=== PATIENT | male | born 2000 | race Caucasian/White ===

== ENCOUNTER 2024-09-29 19:58 | Inpatient (IN) | payer MEDICAID ==
--- NOTE | 2024-09-29 20:36 | ED ---
Psych HPI - General Chief Complaint: Psychiatric Symptoms Stated Complaint: Mental Health Eval Time Seen by Provider: 09/29/24 20:36 Source: family, RN notes reviewed, old records reviewed Mode of arrival: ambulatory Limitations: no limitations - History of Present Illness Initial Comments: This is a 23-year-old male with recent psychiatric thoughts severe depression and suicidal thoughts, patient like to cut himself or drive his car into a tree MD Complaint: suicidal ideation, feels depressed -: days(s) Associated Psychiatric Symptoms: depression, suicidal ideation, racing thoughts History of same: Yes Quality: constant, getting worse Improves With: none Worsens With: none Associated Symptoms: denies other symptoms Treatments Prior to Arrival: placed on mental health hold If Self Harm: admits thoughts of self harm - Related Data Allergies Allergy/AdvReac Type Severity Reaction Status Date / Time No Known Allergies Allergy Verified 09/29/24 20:06 Review of Systems ROS Statement: Those systems with pertinent positive or pertinent negative responses have been documented in the HPI. ROS Other: All systems not noted in ROS Statement are negative. Past Medical History Past Medical History: Renal Disease History of Any Multi-Drug Resistant Organisms: None Reported Past Psychological History: Depression Smoking Status: Current every day smoker Past Alcohol Use History: Occasional Past Drug Use History: None Reported - Past Family History Father Family Medical History: No Reported History Mother Family Medical History: No Reported History General Exam Limitations: no limitations General appearance: alert, in no apparent distress Head exam: Present: atraumatic, normocephalic, normal inspection Eye exam: Present: normal appearance, PERRL, EOMI. Absent: scleral icterus, conjunctival injection, periorbital swelling ENT exam: Present: normal exam, mucous membranes moist Neck exam: Present: normal inspection. Absent: tenderness, meningismus, lymphad enopathy Respiratory exam: Present: normal lung sounds bilaterally. Absent: respiratory distress, wheezes, rales, rhonchi, stridor Cardiovascular Exam: Present: regular rate, normal rhythm, normal heart sounds. Absent: systolic murmur, diastolic murmur, rubs, gallop, clicks GI/Abdominal exam: Present: soft, normal bowel sounds. Absent: distended, tenderness, guarding, rebound, rigid Extremities exam: Present: normal inspection, full ROM, normal capillary refill. Absent: tenderness, pedal edema, joint swelling, calf tenderness Back exam: Present: normal inspection Neurological exam: Present: alert, oriented X3, CN II-XII intact Psychiatric exam: Present: normal affect, normal mood Skin exam: Present: warm, dry, intact, normal color. Absent: rash Course Vital Signs 09/29/24 20:04 Temperature 98.6 F Pulse Rate 77 Respiratory 18 Rate Blood Pressure 143/83 O2 Sat by Pulse 99 Oximetry - Reevaluation(s) Reevaluation #1: 09/29/24 21:22 Medical records reviewed Reevaluation #2: 09/29/24 21:22 Medically cleared for psychiatric evaluation Reevaluation #3: Differential Mental Health Depression, anxiety, bipolar, psychosis, schizophrenia, borderline personality, situational depression, adjustment disorder, behavioral disorder, brain tumor, malingering, substance abuse, encephalopathy, medication reaction, dementia, hypothyroidism, degenerative neurologic disorder, lupus.... This is not meant to be all-inclusive list Reevaluation #4: Was pt. sent in by a medical professional or institution (, PA, BOAT RIGGER, urgent care, hospital, or halfway...) When possible be specific @ -no Did you speak to anyone other than the patient for history (EMS, parent, family, police, friend...)? What history was obtained from this source @ -no Did you review nursing and triage notes (agree or disagree)? Why? @ -agree Are old charts reviewed (outside hosp., previous admission, EMS record, old EKG, old radiological studies, urgent care reports/EKG's, halfway records)? Report findings @ -yes Differential Diagnosis (chest pain, altered mental status, abdominal pain women, abdominal pain men, vaginal bleeding, weakness, fever, dyspnea, syncope, headache, dizziness, GI bleed, back pain, seizure, CVA, palpatations, mental health, musculoskeletal)? @ -prior EKG interpreted by me (3pts min.). @ -no X-rays interpreted by me (1pt min.). @ -no CT interpreted by me (1pt min.). @ -no U/S interpreted by me (1pt. min.). @ -no What testing was considered but not performed or refused? (CT, X-rays, U/S, labs)? Why? @ -none What meds were considered but not given or refused? Why? @ -none Did you discuss the management of the patient with other professionals (professionals i.e. , PA, BOAT RIGGER, lab, RT, psych nurse, social worker assistant, woods boss, teacher, special weapons and tactics officer, immigration case manager)? Give summary @ -no Was smoking cessation discussed for >3mins.? @ -no Was critical care preformed (if so, how long)? @ -no Were there social determinants of health that impacted care today? How? (Homelessness, low income, unemployed, alcoholism, drug addiction, transportation, low edu. Level, literacy, decrease access to med. care, half-way, rehab)? @ -none Was there de-escalation of care discussed even if they declined (Discuss DNR or withdrawal of care, Hospice)? DNR status @ -no What co-morbidities impacted this encounter? (DM, HTN, Smoking, COPD, CAD, Cancer, CVA, ARF, Chemo, Hep., AIDS, mental health diagnosis, sleep apnea, morbid obesity)? @ -none Was patient admitted / discharged? Hospital course, mention meds given and route, prescriptions, significant lab abnormalities, going to OR and other pe rtinent info. @ - 23 male will be admitted for psychiatric evaluation and treatment Transferred for inpatient psychiatric treatment Undiagnosed new problem with uncertain prognosis? @ -no Drug Therapy requiring intensive monitoring for toxicity (Heparin, Nitro, Insulin, Cardizem)? @ -no Were any procedures done? @ -no Diagnosis/symptom? @ -Acute psychosis Acute, or Chronic, or Acute on Chronic? @ -Acute Uncomplicated (without systemic symptoms) or Complicated (systemic symptoms)? @ -Complicated Side effects of treatment? @ -no Exacerbation, Progression, or Severe Exacerbation? @ -exacerbation Poses a threat to life or bodily function? How? (Chest pain, USA, AR, pneumonia, PE, COPD, DKA, ARF, appy, cholecystitis, CVA, Diverticulitis, Homicidal, Suicidal, threat to staff... and all critical care pts) @ -yes Medical Decision Making - Medical Decision Making 23 male will be admitted for psychiatric evaluation and treatment - Lab Data Result diagrams: 09/30/24 10:32 09/30/24 10:32 Lab Results 09/29/24 09/29/24 09/29/24 Range/Units 22:10 22:30 22:30 Urine Color Yellow Urine Appearance Clear (Clear) Urine pH 5.5 (5.0-8.0) Ur Specific [place] 1.028 (1.001-1.035) Urine Protein 1+ H (Negative) Urine Glucose (UA) Negative (Negative) Urine Ketones Negative (Negative) Urine Blood Negative (Negative) Urine Nitrite Negative (Negative) Urine Bilirubin Negative (Negative) Urine Urobilinogen <2.0 (<2.0) mg/dL Ur Leukocyte Esterase Negative (Negative) Urine RBC 8 H (0-5) /hpf Urine WBC 3 (0-5) /hpf Ur Squamous Epith Cells <1 (0-4) /hpf Calcium Oxalate Crystal Moderate H (None) /hpf Urine Mucus Occasional H (None) /hpf Urine Opiates Screen Negative (Negative) Urine Methadone Screen Negative (Negative) Ur Propoxyphene Screen Negative (Negative) Urine Barbiturates Negative (Negative) Ur Phencyclidine Scrn Negative (Negative) Ur Amphetamine Screen Negative (Negative) U Benzodiazepines Scrn Negative (Negative) Urine Cocaine Screen Negative (Negative) U Cannabinoids Screen Negative (Negative) Urine Alcohol Negative (Negative) U Creatinine Drug Scrn 299.0 (>=20.0) mg/dL Influenza Type A (PCR) Not Detected (Not Detectd) Influenza Type B (PCR) Not Detected (Not Detectd) RSV (PCR) Not Detected (Not Detectd) SARS-CoV-2 (PCR) Not Detected (Not Detectd) Disposition Clinical Impression: Major depressive disorder, Hallucinogen abuse, Adjustment reaction of adult life, Psychosis Disposition: TRANSFER TO PSYCH HOSP/UNIT Condition: Fair Is patient prescribed a controlled substance at d/c from ED?: No
[2024-09-29 22:56] LABS: Influenza A Not Detected (Not Detectd); Influenza B Not Detected (Not Detectd); RSV Not Detected (Not Detectd)
[2024-09-29] MEDS ORDERED: MAGNESIUM HYDROXIDE 2,400 MG/30 ML CUP PO PRN (23:17)
[2024-09-29] MEDS ORDERED: LORazepam 1 MG TAB PO PRN (23:17)
[2024-09-29] MEDS ORDERED: IBUPROFEN 600 MG TAB PO PRN (23:17)
[2024-09-29] MEDS ORDERED: haloperidoL 5 MG TAB PO PRN (23:17)
[2024-09-29] MEDS ORDERED: LORazepam 2 MG/ML INJ IM PRN (23:17)
[2024-09-29] MEDS ORDERED: ACETAMINOPHEN TAB 325 MG TAB PO PRN (23:17)
[2024-09-29] MEDS ORDERED: HALOPERIDOL LACTATE 5 MG/ML 1 ML VIAL IM PRN (23:17)
[2024-09-29] MEDS ORDERED: MAG HYDROX/AL HYDROX/SIMETH 355 ML BOTTLE PO PRN (23:17)
[2024-09-29] MEDS ORDERED: traZODone HCL 50 MG TAB PO PRN (23:17)
[2024-09-30 00:51] LABS: Appearance,Urine Clear (Clear); Bilirubin,Urine Negative (Negative); Blood,Urine Negative (Negative); Calcium Oxalate Crystals,Urine Moderate /hpf; Color,Urine Yellow; Glucose,Urine (UA) Negative (Negative); Ketones,Urine Negative (Negative); Leukocyte Esterase,Urine Negative (Negative); Mucus,Urine Occasional /hpf; Nitrite,Urine Negative (Negative); PH, Urine 5.5 (5.0-8.0); Protein,Urine 1+ (Negative); RBC,Urine 8 /hpf (0-5); Specific Gravity,Urine 1.028 (1.001-1.035); Squamous Epithelial Cell,Urine <1 /hpf (0-4); Urobilinogen,Urine <2.0 mg/dL (<2.0); WBC,Urine 3 /hpf (0-5)
--- NOTE | 2024-09-30 08:50 | P.HP ---
Psychiatric H&P - . H&P Date: 09/30/24 History & Physical: Allergies Allergy/AdvReac Type Severity Reaction Status Date / Time No Known Allergies Allergy Verified 09/29/24 20:06 Vital Signs Temp 97.9 F 09/30/24 00:09 Pulse 73 09/30/24 00:09 Resp 18 09/30/24 00:09 BP 127/83 09/30/24 00:09 Pulse Ox 98 09/30/24 00:09 FiO2 Intake & Output 09/29/24 09/30/24 09/30/24 18:59 06:59 18:59 Weight 68.719 kg Laboratory Last Values Urine Color Yellow 09/29/24 22:30 Urine Appearance Clear (Clear) 09/29/24 22: Urine pH 5.5 (5.0-8.0) 09/29/24 22:30 Ur Specific [place] 1.028 (1.001-1.035) 09/29/24 22:30 Urine Protein 1+ (Negative) H 09/29/24 22:30 Urine Glucose (UA) Negative (Negative) 09/29/24 22:30 Urine Ketones Negative (Negative) 09/29/24 22:30 Urine Blood Negative (Negative) 09/29/24 22:30 Urine Nitrite Negative (Negative) 09/29/24 22: Urine Bilirubin Negative (Negative) 09/29/24 22:30 Urine Urobilinogen <2.0 mg/dL (<2.0) 09/29/24 22:30 Ur Leukocyte Esterase Negative (Negative) 09/29/24 22:30 Urine RBC 8 /hpf (0-5) H 09/29/24 22:30 Urine WBC 3 /hpf (0-5) 09/29/24 22:30 Ur Squamous Epith Cells <1 /hpf (0-4) 09/29/24 22:30 Calcium Oxalate Crystal Moderate /hpf (None) H 09/29/24 22:30 Urine Mucus Occasional /hpf (None) H 09/29/24 22:30 Influenza Type A (PCR) Not Detected (Not Detectd) 09/29/24 22:10 Influenza Type B (PCR) Not Detected (Not Detectd) 09/29/24 22:10 RSV (PCR) Not Detected (Not Detectd) 09/29/24 22:10 SARS-CoV-2 (PCR) Not Detected (Not Detectd) 09/29/24 22:10
--- NOTE | 2024-09-30 09:06 | P.HP ---
Psychiatric H&P - . H&P Date: 09/30/24 History & Physical: 09/30/24 08:50 This is a 23-year-old male with recent psychiatric thoughts severe depression and suicidal thoughts, patient like to cut himself or drive his car into a tree. He struggled with severe depression as a teen and was prescribed Prozac but can't remember if it helped. About 4 months ago he began to feel more depressed. The main stress was having to set limits on coworkers. 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 He has been trying to treat his depression with mushrooms and recently abused them and watched a terrifying movie. He could not tel the difference between movie and reality and became much more suicidal. His occaisional suicidal thoughts became urges and he could not commit to safety. Social history: He had been given to 'wripl" movement as a teen and is still on probation for his involvement in a "terrorist" group. 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 He is the oldest of two children born to his parents. His whole family struggles with bipolar or alcohol or anger problems. Father is bipolar and mom was angry and fluctuated. He was born premature, his parents when he was 6, his younger brother has been diagnosed with schizoaffective disorder. He dropped out in the 11th grade to go to work so his option if he quits his job are limitedd. He lives and shares a house with his brother and 2 cats and a dog. MENTAL STATUS: He is alert with good eye contact and came redily to talk. He is oriented x4 and cooperative. He shows no psychotic or manic symptoms. Self care is good He could remember 3 of 3 objects for 5 min, he could name the last 7 presidents, he knew all of the [place] and where they were, he could spell WORLD backwards slowly and subtract 7 from 93 slowly. Abstracting the proverrb, "the grass is greener" he said, "Accept your own reality. He said that cats and snakes are both "feminine and move gracefully," This is an unusual and abstract idea. He says that the suicidal ideas are still there but are dying down. PLAN: for now he wants to think about taking medications and would rather look into counseling. ASSESSMENT: I think that he has some sort of Mood disorder inherited from his family but it is managable if he leaves the substances alone. Diagnosis: Major DEpression recurrent moderate nonpsychotic
[2024-09-30] MEDS: NICOTINE 14MG/24HR PATCH TRANSDERM SCH (09:45)
--- NOTE | 2024-09-30 10:35 | P.HP ---
Psychiatric H&P - . H&P Date: 09/30/24 History & Physical: 09/30/24 10:15 in the ER: This is a 23-year-old male with recent psychiatric thoughts severe depression and suicidal thoughts, patient like to cut himself or drive his car into a tree Complaint: suicidal ideation, feels depressed Her petition says that she wanted to not be on earth and tried to cut her wrist with a hammer after taking an OD of flexeril. SUBJECTIVE: "They got it all wrong." She says that she has no history of depression or suicidal acts. She rhea any problem with substance abuse. She says that she has been in reltionship with her boyfriend on and off for about 8 years. He recently allowed his 16 yo son to visit from [place]. The patient and his son have never gotten along as he does not accept her being in relationship with his dad. She pointed out to her boyfriend that she always did things for him and even takes care of his invalid mother but he never does anything for her and she just wanted to have him send her back to her family in [place]. They had had a couple drinks but she says that she did not have a buz on. Everyone was fighting and she took 3 flexeril for muscle relaxation and knew full well that that would not kill her. During the fight, in order to push the point of her misery she made comments that she laughingly admits were inadvised, about not wanting to be on earth. She then too a plastic sheath for a knife and pantomimed cutting her wrist. "There was never any hammer involved." They called the police and she wound up in the hospital. She denies now or in the past any suicidal or homicidal ideas. She denies and does not evidence any psychotic symptoms. She shows no racing thoughts or pressured speech and rhea any past manic episodes. She has a plan to go to stay with her sister in [place] and called her sister who agreed to take her. 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 SOCIAL HISTORY: She is the third of five children born to her parents who are alive and together. Her mother does have Altzeimers. She was for14 years and has 3 children. The oldest is 34 and has two children and is doing well. The next is 32 and is, "lazy" and does not care for her two children. The patient was taking care of them but due to her boyfriends son being out of control the children were removed. She has a 30 year old son. 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 No and no legal issues. Mental status: She is aler with good eye contact and gait and station are normal. Psychomotor activity is normal. She is oriented x4. She is cooperative and has a good sense of humor. Affect is full and appropriate to the discussion and not depressed. Her short term memory is good and general informatiion is average. She could abstract that cats and snakes both callejas but then her generativity was low and she could not think of anything else. She was not slow just not used to pushing herself to think. For the grass is greener she said, "Don't take your life for granted." She does have some difficulty with concentration ie. she spelled WORLD backwards as DLOW and subtracting 7 from93 got 87. No evidence of depression or anxiety or psychosis or abigail. DIGNOSIS: Adjustment Disorder with depression ASSESSMENT: She does not feel that she needs hospitalization and there is no basis for a second certification. She is not a danger to self or others and does not need meds PLAN; Discharge patient to self to return to [place].
--- NOTE | 2024-09-30 10:36 | P.DS ---
Providers Date of admission: 09/29/24 23:05 Expected date of discharge: 09/30/24 Attending physician: Marycruz Jade MD Consults: 09/29/24 23:17 Consult Physician Routine Consulting Provider: Ellen Garnica Consult Reason/Comments: medical H&P Do you want consulting provider notified?: Yes Primary care physician: Physician Nonstaff Plan - Discharge Summary Discharge Rx Participant: Yes Follow up Appointment(s)/Referral(s): Nonstaff,Physician [Primary Care Provider] - 1-2 days
[2024-09-30 11:16] LABS: Basophils # (A) 0.07 10*3/uL (0.00-0.10); Basophils % (A) 1.2 %; Eosinophils # (A) 0.23 10*3/uL (0.04-0.35); Eosinophils % (A) 4.1 %; HCT 40.6 % (39.6-50.0); HGB 13.2 g/dL (13.0-17.0); Lymphocytes # (A) 1.03 10*3/uL (0.90-5.00); Lymphocytes % (A) 18.3 %; MCH 29.5 pg (27.0-32.0); MCHC 32.5 g/dL (32.0-37.0); MCV 90.6 fL (80.0-97.0); Mean Platelet Volume 10.9 fL (9.5-12.2); Monocytes # (A) 0.41 10*3/uL (0.20-1.00); Monocytes % (A) 7.3 %; Neutrophils # (A) 3.87 10*3/uL (1.80-7.70); Neutrophils % (A) 68.9 %; Platelet Count 235 10*3/uL (140-440); RBC 4.48 10*6/uL (4.40-5.60); WBC 5.62 10*3/uL (4.50-10.00)
[2024-09-30 11:33] LABS: ALT 12 U/L (4-49); AST 21 U/L (17-59); African American GFR (CKD) >90 (>60 ml/min/1.73 sqM); Albumin 4.3 g/dL (3.5-5.0); Alkaline Phosphatase 46 U/L (38-126); Anion Gap 8 mmol/L; Blood Urea Nitrogen 19 mg/dL (9-20); Calcium 9.5 mg/dL (8.4-10.2); Carbon Dioxide 27 mmol/L (22-30); Chloride 106 mmol/L (98-107); Glucose 79 mg/dL (74-99); Non-African American GFR(CKD) >90 (>60 ml/min/1.73 sqM); Potassium 4.7 mmol/L (3.5-5.1); Sodium 141 mmol/L (137-145); Total Bilirubin 0.5 mg/dL (0.2-1.3); Total Protein 6.4 g/dL (6.3-8.2)
[2024-09-30 12:04] LABS: Urine Alcohol Negative (Negative); Urine Barbiturate Negative (Negative); Urine Cocaine Negative (Negative); Urine Methadone Negative (Negative); Urine Opiates Negative (Negative); Urine Phencyclidine Negative (Negative)
[2024-10-01 02:40] LABS: Chol/HDL Ratio 3.42 Ratio; LDL Cholesterol,Calculated 94.6 mg/dL (0.0-131.0); VLDL Calculation 16.52 mg/dL (5.00-40.00)
[2024-10-01 09:01] VITALS: BP 106/69; PULSE 88; RESP 16; TEMP 97.7
--- NOTE | 2024-10-01 12:56 | P.DS ---
Providers Date of admission: 09/29/24 23:05 Expected date of discharge: 10/01/24 Attending physician: Marycruz Jade MD Consults: 09/29/24 23:17 Consult Physician Routine Consulting Provider: Ellen Garnica Consult Reason/Comments: medical H&P Do you want consulting provider notified?: Yes Primary care physician: Physician Nonstaff - Discharge Diagnosis(es) (1) Major depressive disorder Current Visit: Yes Status: Acute Priority: High (2) Hallucinogen abuse Current Visit: Yes Status: Acute Priority: High Hospital Course: Admission HPI: Admission note was completed by Dr. Onofre "This is a 23-year-old male with recent psychiatric thoughts severe depression and suicidal thoughts, patient like to cut himself or drive his car into a tree. He struggled with severe depression as a teen and was prescribed Prozac but can't remember if it helped. About 4 months ago he began to feel more depressed. The main stress was having to set limits on coworkers. 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 He has been trying to treat his depression with mushrooms and recently abused them and watched a terrifying movie. He could not tel the difference between movie and reality and became much more suicidal. His occaisional suicidal thoughts became urges and he could not commit to safety." Hospital course: Upon admission to the unit patient was directable and agreeable to commence treatment and signed adult voluntary form.. Patient got along well with other patients on the unit and followed unit protocol. Patient was compliant with the medications and denied any side effects throughout hospital course. There were no initiation of psychotropic medications as patient reported improvement in mood upon discontinuing in the hallucinogen. There was discussion with patient regarding the benefits with starting an antidepressant however upon discussion this will be discussed further with his outpatient team and will continue holding this medication for right now. Patient spoke of his stressors and engaged in therapy both group and individual. Patient was also seen by medical team for history and physical exam. Throughout the course of the hospitalization patient gradually improved with regards to mood, anxiety, sleep and became more future oriented with improved insight and judgment. On the day of discharge patient denied any suicidal or homicidal ideations intent or plan denied any auditory or visual hallucinations. The patient denied any access to guns or weapons. Patient denied any paranoia and did not endorse any delusions. Patient does have a significant history of substance abuse and was counseled on abstaining from all substances including alcohol and marijuana. Patient was offered however declined inpatient substance-abuse rehab. Patient was also cou nseled on the medications and need for regular compliance and was encouraged to follow-up with their outpatient appointment for mental health and also for primary care. Prior to discharge a family meeting will be arranged by geriatric social worker to answer any questions and ensure safety upon discharge including making sure that guns/weapons are either removed from the home or locked away. Patient to be discharged home with brother and will follow-up with [facility]. Mental status exam: General Appearance: Patient appears to be stated age is alert, pleasant, and cooperative. Patient is in no acute distress and has improved hygiene and grooming Behavior: Patient is calmly seated without any agitated behavior. Speech: Patient's speech is fluent and nonpressured. Mood/Affect: Patient reports their mood is "better", affect is congruent and euthymic. Suicidality/Homicidality: Patient denies having any suicidal or homicidal ideation intent or plan. Perceptions: Patient denies any auditory or visual hallucinations. Though content/process: There is no evidence of any delusional thought content and thought process is linear and goal-directed. More future oriented Memory and concentration: AOX3, grossly intact for the purposes of this session. Can spell "WORLD" backwards correctly. Judgment and insight: Fair Impression: Major depressive disorder Hallucinogen abuse Plan: -Continue with discharge today as patient has improved and stabilized psychiatrically and is not currently an imminent threat to themself and/or others. Patient will remain at chronically elevated risk for harm to self and/or others due to their impulsivity and substance abuse. -Continue medications: Discussed with patient regarding speaking to his outpatient provider about potentially starting an antidepressant -Patient was counseled on the need for medication compliance and appropriate follow-up at mental health and also primary care for medical issues. Patient verbalized understanding and agreed. -Social work to help coordinate patients discharge today arrange for and conduct family meeting to ensure safety upon discharge and answer any questions/concerns. also to ensure safe home environment that guns/weapons are either removed from the home or locked away. Social work also to arrange for patients follow up appointments with [facility] for psychiatric care along with follow up with primary care provider. -Patient counseled on abstaining from recreational drugs and marijuana and alcohol. Was informed/educated on the adverse effects on their physical and mental health. Patient verbally agreed and understood. Patient was offered substance abuse treatment however declined at this time. -Patient was instructed to return to the hospital or seek immediate medical care if their psychiatric or medical symptoms do worsen or reoccur. Abnormal Labs 09/29/24 22:30 Urine Protein 1+ H Urine RBC 8 H Calcium Oxalate Crystal Moderate H Urine Mucus Occasional H Allergies Allergy/AdvReac Type Severity Reaction Status Date / Time No Known Allergies Allergy Verified 09/29/24 20:06 Vital Signs Temp 97.7 F 10/01/24 09:00 Pulse 88 10/01/24 09:00 Resp 16 10/01/24 09:00 BP 106/69 10/01/24 09:00 Pulse Ox 97 10/01/24 09:00 FiO2 Intake & Output 09/30/24 10/01/24 10/01/24 18:59 06:59 18:59 Weight 68.81 kg Patient Condition at Discharge: Stable Plan - Discharge Summary Discharge Rx Participant: Yes Follow up Appointment(s)/Referral(s): John Hopper [Other] - 10/04/24 2:00 pm (10/04 @ 14:00 via ZOOM facility will email ZOOM directions and invite for appt. ) [facility] [REFERRING] - 1 Week Patient Instructions/Handouts: How to Stop Smoking (DC), Depression (DC), Autism Spectrum Disorder (GEN) Activity/Diet/Wound Care/Special Instructions: [facility] Discharge Info Avoid the use of street drugs and alcohol. Take all medications as prescribed. When you are in need of refills on your medications, please contact your outpatient medical provider and/or outpatient psychiatrist. Please go to your scheduled outpatient appointments for aftercare treatment. If symptoms return or become worse, call the crisis line at or and/or visit the nearest emergency room for assistance. National Suicide and Crisis Lifeline - call or text 512. Discharge Disposition: HOME SELF-CARE
== END 2024-10-01 13:30 | disposition home or self-care (01) | DRG 885 ==
LOC: EC 19:58 → 3MHU 23:05
PROVIDERS: ADMIT Psychiatry & Neurology Psychiatry; ATTEND Psychiatry & Neurology Psychiatry
DX: F33.1 Major depressive disorder, recurrent, moderate (principal); F29 Unspecified psychosis not due to a substance or known physiological condition; F16.10 Hallucinogen abuse, uncomplicated; R45.851 Suicidal ideations; F17.200 Nicotine dependence, unspecified, uncomplicated; F41.9 Anxiety disorder, unspecified; F43.21 Adjustment disorder with depressed mood; Z11.52 Encounter for screening for COVID-19
CPT/HCPCS: 80053; 80061; 80306; 81001; 82075; 83036; 84443; 85025; 87636; 99285